=== PATIENT | female | born 1970 | race Caucasian/White ===

== ENCOUNTER 2017-03-26 09:53 | Emergency (ER) | payer BC ==
[2017-03-26 10:03] VITALS: BP 119/74
--- NOTE | 2017-03-26 11:44 | UC ---
Complaint Female HPI - HPI Summary HPI Summary: pt p/w supra pubic pressure, pain with urination, inceased frequency while voiding small amounts x 2 days. pt has also noted back pain that started 4 days ago. she is unsure whether or not mild back pain is related to presenting complaint. denies f/c/n/v/abd pain. 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 no uti in the last 8 years until now. - History Of Current Complaint Chief Complaint: UCGU Stated Complaint: BURNING,FREQ URINATING,BACK PAIN Time Seen by Provider: 03/26/17 09:59 Hx Obtained From: Patient Hx Last Menstrual Period: 03/14/17 ?: No Onset/Duration: Gradual Onset, Lasting Days, Still Present, Worse Since - today Timing: Constant Severity Initially: Moderate Severity Currently: Moderate Pain Intensity: 3 Pain Scale Used: 0-10 Numeric Character: Dull, Burning Aggravating Factor(s): Urination Associated Signs And Symptoms: Positive: Back Pain. Negative: Fever, Vaginal Bleeding/Discharge, Vaginal Discharge, Nausea, Vomiting(# Of Episodes =), Genital Swelling, Genital Blisters - Allergies/Home Medications Allergies/Adverse Reactions: Allergies Allergy/AdvReac Type Severity Reaction Status Date / Time Morphine Allergy Severe Nausea And Verified 03/26/17 09:57 Vomiting Tree Nuts Allergy Severe Anaphylatic Verified 03/26/17 09:57 Shock Sulfa Antibiotics Allergy Unknown Shakes Verified 03/26/17 09:57 Tramadol AdvReac Severe Nausea And Verified 03/26/17 09:57 Vomiting PMH/Surg Hx/FS Hx/Imm Hx Previously Healthy: Yes Other Cardiovascular History: neg:htn GI/ History: Other - 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 no uti in the last 8 years until now. 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 CORRECTIVE KIDNEY SURGERY A CHILD. LEFT ELBOW; CARPAL TUNNEL TO RIGHT WRIST 2006 - Family History Known Family History: Negative: Cardiac Disease, Hypertension, Diabetes - Social History Alcohol Use: Occasionally Substance Use Type: None Smoking Status (MU): Former Smoker Type: Cigarettes Length of Time of Smoking/Using Tobacco: 10 yrs Have You Smoked in the Last Year: Yes Review of Systems Constitutional: Negative Skin: Negative ENT: Negative Respiratory: Negative Cardiovascular: Negative Gastrointestinal: Negative Genitourinary: Dysuria, Frequency, Urgency Neurological: Negative All Other Systems Reviewed And Are Negative: Yes Physical Exam Triage Information Reviewed: Yes Appearance: Well-Appearing, No Pain Distress, Well-Nourished Vital Signs: Initial Vital Signs Temp 99.1 F 03/26/17 09:58 Pulse 74 03/26/17 09:58 Resp 16 03/26/17 09:58 BP 119/74 03/26/17 09:58 Pulse Ox 100 03/26/17 09:58 Vital Signs Reviewed: Yes Eyes: Positive: Conjunctiva Clear. Negative: Discharge ENT: Positive: Hearing grossly normal. Negative: Muffled/hoarse voice Neck: Positive: Supple Respiratory: Positive: Lungs clear, Normal breath sounds, No respiratory distress, No accessory muscle use Cardiovascular: Positive: RRR, No Murmur Abdomen Description: Positive: Soft. Negative: Nontender - supra pubic tenderness only, CVA Tenderness (R), CVA Tenderness (L), Distended, Guarding, McBurney's Point Tenderness, Peritoneal Signs Bowel Sounds: Positive: Present Musculoskeletal Exam: Normal Musculoskeletal: Positive: Other: - mild paraspainal spasm in lumbar region Neurological: Positive: Alert, Muscle Tone Normal, Other: - strength sensation reflexes intact bl Psychological: Positive: Age Appropriate Behavior Skin Exam: Normal Complaint Female Dx - Differential Dx/Diagnosis Differential Diagnosis/HQI/PQRI: , Renal Colic, Urinary Tract Infection Provider Diagnoses: uti, hematuria Discharge - Discharge Plan Condition: Stable Disposition: HOME Prescriptions: Cephalexin CAP* [Keflex CAP*] 500 mg PO BID #20 cap Patient Education Materials: Urinary Tract Infection in Women (ED), Hematuria ( ED) Referrals: Rosa Maria Paredes MD [Primary Care Provider] - (FOLLOW UP IN 2 DAYS IF NOT IMPROVING. OTHERWISE FOLLOW UP IN 2 WEEKS.) Additional Instructions: YOUR URINE DIP WAS POSITIVE FOR ALL THREE TYPES OF EVIDENCE OF UTI: BLOOD, NITRATES AND LEUKOCYTESTERASE CEPHALEXIN: The antibiotic you've been prescribed is a member of the cephalosporin class. This type of antibiotic covers a wide variety of infections, including those of the skin, lungs, and urinary tract. It's useful for staph infections. This antibiotic is slightly similar to the penicillin family. In rare cases , a person who is allergic to penicillin will also be allergic to this medication. If you have had a severe allergic reaction to penicillin, and have not taken this antibiotic since that time, notify your doctor. Antibiotics which cover many germs ("broad spectrum" antibiotics) are more likely to cause diarrhea or "yeast" infections. Women prone to vaginal yeast problems may suffer an attack after taking this antibiotic. In infants, oral thrush (white spots "stuck" on the cheek) or yeast diaper rash may result. See your doctor if these problems occur. Call at once if you develop itching, hives , shortness of breath, or lightheadedness. ANYTIME YOU TAKE AN ANTIBIOTIC, IT IS IMPORTANT TO REPLENISH THE BODY'S SUPPLY OF "GOOD BACTERIA." YOU CAN GET GOOD BACTERIA FROM HIGH QUALITY CULTURED FOODS SUCH LOCAL YOGURT, SOUR KRAUT, BOYD VIKRAM, NATURALLY FERMENTED PICKLES AND PROBIOTIC DRINKS. YOU CAN ALSO GET GOOD BACTERIA FROM A PROBIOTIC SUPPLEMENT.
== END 2017-03-26 10:34 | disposition home or self-care (01) ==
LOC: UCEAST 09:53
DX: N39.0 Urinary tract infection, site not specified (principal); B96.20 Unspecified Escherichia coli [E. coli] as the cause of diseases classified elsewhere; R31.9 Hematuria, unspecified; Z32.02 Encounter for pregnancy test, result negative; Z88.5 Allergy status to narcotic agent; Z88.2 Allergy status to sulfonamides; Z87.891 Personal history of nicotine dependence
CPT/HCPCS: 81003; 84702; 87077; 87086; 87186; 99202; G0463

== ENCOUNTER 2017-03-30 07:24 | Emergency (ER) | payer BC ==
[2017-03-30 07:52] VITALS: BP 116/72
--- NOTE | 2017-03-30 08:14 | UC ---
Complaint Female HPI - HPI Summary HPI Summary: Patient presents with complaints of night sweats, (which have been ongoing for two years), fever 101.2, and chills, recorded at home, and on day 4/10 day course of antibiotics for UTI. She was RX Keflex and did not take them today because of diarrhea. She states she is about to start her menses. She denies nausea, vomiting or dysuria, abnormal vaginal discharge or bleeding. - History Of Current Complaint Chief Complaint: UCGU Stated Complaint: FEVER BACK PAIN Time Seen by Provider: 03/30/17 07:58 Hx Obtained From: Patient Hx Last Menstrual Period: 03/15/17 ?: No Onset/Duration: Gradual Onset Timing: Constant Severity Initially: Mild Severity Currently: Mild Character: Dull Aggravating Factor(s): Urination Associated Signs And Symptoms: Positive: Fever, Back Pain Related Hx: Similar Episode/Dx as: - UTI/Kidney infection. - Allergies/Home Medications Allergies/Adverse Reactions: Allergies Allergy/AdvReac Type Severity Reaction Status Date / Time Morphine Allergy Severe Nausea And Verified 03/30/17 07:52 Vomiting Tree Nuts Allergy Severe Anaphylatic Verified 03/30/17 07:52 Shock Sulfa Antibiotics Allergy Unknown Shakes Verified 03/30/17 07:52 Tramadol AdvReac Severe Nausea And Verified 03/30/17 07:52 Vomiting PMH/Surg Hx/FS Hx/Imm Hx Previously Healthy: Yes Other History Of: Negative For: HIV, Hepatitis B, Hepatitis C, Anticoagulant Therapy - Surgical History Surgical History: Yes Surgery Procedure, Year, and Place: . CORRECTIVE KIDNEY SURGERY A CHILD. LEFT ELBOW; CARPAL TUNNEL TO RIGHT WRIST 2006 - Family History Known Family History: Negative: Cardiac Disease, Hypertension, Diabetes - Social History Occupation: Employed Full-time Lives: With Family Alcohol Use: Occasionally Substance Use Type: None Smoking Status (MU): Former Smoker Type: Cigarettes Length of Time of Smoking/Using Tobacco: 10 yrs Have You Smoked in the Last Year: Yes Review of Systems Constitutional: Fever, Chills All Other Systems Reviewed And Are Negative: Yes Physical Exam Triage Information Reviewed: Yes Appearance: Well-Appearing Vital Signs: Initial Vital Signs Temp 97.6 F 03/30/17 07:49 Pulse 83 03/30/17 07:49 Resp 18 03/30/17 07:49 BP 116/72 03/30/17 07:49 Pulse Ox 100 03/30/17 07:49 Vital Signs Reviewed: Yes Eye Exam: Normal ENT Exam: Normal Neck exam: Normal Respiratory Exam: Normal Cardiovascular Exam: Normal Abdominal Exam: Normal Skin Exam: Normal Complaint Female Dx - Course Course Of Treatment: Patient presents with continued complaints if fever, chills , (night sweats) and feel that the antibiotic is not working. Although she states that she had been on Keflex before without adverse side effects, and it was effective. A UA was repeated today and was noted to be positive for infection. The antibiotic was changed to Cipro 500 mg by mouth twice daily x 7 days. I also recommend she take probiotics, and if her symtpoms do not improve as anticapated and if for any reason her symtpom worsned she was instructed to go to the ER immedicately. - Differential Dx/Diagnosis Differential Diagnosis/HQI/PQRI: Urinary Tract Infection Provider Diagnoses: UTI Discharge - Discharge Plan Condition: Stable Disposition: HOME Prescriptions: Ciprofloxacin TAB* [Cipro 500 MG TAB*] 500 mg PO BID #14 tab Patient Education Materials: Urinary Tract Infection in Women (ED) Referrals: Patricia Trevino NP [Primary Care Provider] - Additional Instructions: I recommend that if your symptoms persist beyond 48 hours, or do not improve as anticipated you should seek immediate medical attention in the nearest emergency department, and you could develop sepsis.
== END 2017-03-30 08:47 | disposition home or self-care (01) ==
LOC: UCEAST 07:24
DX: N39.0 Urinary tract infection, site not specified (principal); R50.9 Fever, unspecified; R61 Generalized hyperhidrosis; Z88.5 Allergy status to narcotic agent; Z88.2 Allergy status to sulfonamides; Z87.891 Personal history of nicotine dependence
CPT/HCPCS: 81003; 87086; 99212; G0463

== ENCOUNTER 2017-04-02 07:22 | Emergency (ER) | payer BC ==
[2017-04-02 07:31] VITALS: BP 109/86
--- NOTE | 2017-04-02 07:44 | UC ---
Throat Pain/Nasal Reginald HPI - HPI Summary HPI Summary: CURRENTLY ON CIPRO FOR U"BLADDER INFECTION". IS HAVING PERSISTENT FEVER. 101.4 THIS MORNING. SAW A WHITE SPOT ON HER LEFT TONSIL. ONLY MILD ST. - History of Current Complaint Chief Complaint: UCRespiratory Stated Complaint: SORE THROAT Time Seen by Provider: 04/02/17 07:36 Hx Obtained From: Patient Hx Last Menstrual Period: 03/28/17 Onset/Duration: Gradual Onset, Lasting Days, Still Present Severity: Mild Pain Intensity: 0 Pain Scale Used: 0-10 Numeric Cough: None Associated Signs & Symptoms: Positive: Fever - Allergies/Home Medications Allergies/Adverse Reactions: Allergies Allergy/AdvReac Type Severity Reaction Status Date / Time Morphine Allergy Severe Nausea And Verified 04/02/17 07:31 Vomiting Tree Nuts Allergy Severe Anaphylatic Verified 04/02/17 07:31 Shock Sulfa Antibiotics Allergy Unknown Shakes Verified 04/02/17 07:31 Tramadol AdvReac Severe Nausea And Verified 04/02/17 07:31 Vomiting Home Medications: Home Medications Acetaminophen [Tylenol] 650 mg PO Q4H PRN 04/02/17 [History Confirmed 04/02/17] Ibuprofen [Advil] 600 mg PO Q6H PRN 04/02/17 [History Confirmed 04/02/17] PMH/Surg Hx/FS Hx/Imm Hx Respiratory History: Asthma Other History Of: Negative For: HIV, Hepatitis B, Hepatitis C, Anticoagulant Therapy - Surgical History Surgical History: Yes Surgery Procedure, Year, and Place: . CORRECTIVE KIDNEY SURGERY A CHILD. LEFT ELBOW; CARPAL TUNNEL TO RIGHT WRIST 2006 - Family History Known Family History: Negative: Cardiac Disease, Hypertension, Diabetes - Social History Alcohol Use: Occasionally Substance Use Type: None Smoking Status (MU): Former Smoker Type: Cigarettes Length of Time of Smoking/Using Tobacco: 10 yrs Have You Smoked in the Last Year: Yes - Immunization History Most Recent Influenza Vaccination: 2016 Review of Systems Constitutional: Fever ENT: Sore Throat Respiratory: Negative Cardiovascular: Negative Gastrointestinal: Negative Genitourinary: Dysuria All Other Systems Reviewed And Are Negative: Yes Physical Exam Triage Information Reviewed: Yes Appearance: Well-Appearing, No Pain Distress, Well-Nourished Vital Signs: Initial Vital Signs Temp 98.4 F 04/02/17 07:25 Pulse 78 04/02/17 07:25 Resp 16 04/02/17 07:25 BP 109/86 04/02/17 07:25 Pulse Ox 100 04/02/17 07:25 Vital Signs Reviewed: Yes Eyes: Positive: Conjunctiva Clear ENT: Positive: Hearing grossly normal, Pharynx normal, TMs normal, Other: - SMALL [place] WHITE DEBRIS LEFT TONSIL. Negative: Tonsillar swelling, Tonsillar exudate Neck: Positive: Supple, Nontender, No Lymphadenopathy Respiratory Exam: Normal Cardiovascular Exam: Normal Abdomen Description: Positive: Soft Musculoskeletal: Positive: No Edema Neurological: Positive: Alert Psychological: Positive: Age Appropriate Behavior Skin: Negative: rashes Diagnostics - Laboratory Diagnostic Studies Completed/Ordered: RAPID STREP NEGATIVE Throat Pain/Nasal Course/Dx - Differential Dx/Diagnosis Provider Diagnoses: ACUTE URI/PHARYNGITIS - LIKELY VIRAL Discharge - Discharge Plan Condition: Stable Disposition: HOME Patient Education Materials: Upper Respiratory Infection (ED) Referrals: Patricia Trevino [employer] [Primary Care Provider] - If Needed Additional Instructions: RAPID STREP NEGATIVE. YOU MAY HAVE PICKED UP A VIRAL ILLNESS THAT IS GIVING YOU A FEVER. THIS SHOULD RESOLVE OVER THE NEXT FEW DAYS. IF IT DOES NOT, SEEK FOLLOW -UP WITH YOUR PCP OR HERE FOR FURTHER EVALUATION.
== END 2017-04-02 08:07 | disposition home or self-care (01) ==
LOC: UCEAST 07:22
DX: J06.9 Acute upper respiratory infection, unspecified (principal); J02.9 Acute pharyngitis, unspecified; R50.9 Fever, unspecified; Z88.5 Allergy status to narcotic agent; Z88.2 Allergy status to sulfonamides; Z87.891 Personal history of nicotine dependence
CPT/HCPCS: 87651; 99211; G0463

== ENCOUNTER 2017-10-23 14:06 | Emergency (ER) | payer BC ==
[2017-10-23 14:14] VITALS: BP 110/78
--- NOTE | 2017-10-23 14:23 | UC ---
Throat Pain/Nasal Reginald HPI - HPI Summary HPI Summary: Pt presents with sinus pain/pressure/congestion and left eye watering. Symptoms started about 2 weeks ago. Has not been taking anything OTC. Denies fever, chills, cough, SOB, chest pain, abdominal pain, n/v/d/c. - History of Current Complaint Chief Complaint: UCRespiratory Stated Complaint: SINUS CONGESTION Time Seen by Provider: 10/23/17 14:23 Hx Obtained From: Patient Hx Last Menstrual Period: 10/11/17 Onset/Duration: Gradual Onset Severity: Mild Pain Intensity: 3 Pain Scale Used: 0-10 Numeric - Allergies/Home Medications Allergies/Adverse Reactions: Allergies Allergy/AdvReac Type Severity Reaction Status Date / Time Tree Nuts Allergy Severe Anaphylatic Verified 04/02/17 07:31 Shock morphine Allergy Nausea And Verified 10/23/17 14:14 Vomiting Sulfa (Sulfonamide Allergy Shakes Verified 10/23/17 14:14 Antibiotics) tramadol Allergy Nausea And Verified 10/23/17 14:14 Vomiting Home Medications: Home Medications Acetaminophen [APAP] 325 mg PO Q6H PRN 10/23/17 [History Confirmed 10/23/17] PMH/Surg Hx/FS Hx/Imm Hx Previously Healthy: Yes Respiratory History: Asthma Other History Of: Negative For: HIV, Hepatitis B, Hepatitis C, Anticoagulant Therapy - Surgical History Surgical History: Yes Surgery Procedure, Year, and Place: . CORRECTIVE KIDNEY SURGERY A CHILD. LEFT ELBOW; CARPAL TUNNEL TO RIGHT WRIST 2006 - Family History Known Family History: Negative: Cardiac Disease, Hypertension, Diabetes - Social History Occupation: Employed Full-time Lives: With Family Alcohol Use: Occasionally Substance Use Type: None Smoking Status (MU): Former Smoker Type: Cigarettes Length of Time of Smoking/Using Tobacco: 10 yrs Have You Smoked in the Last Year: Yes - Immunization History Most Recent Influenza Vaccination: 2016 Review of Systems Constitutional: Negative Skin: Negative Eyes: Drainage - Left eye ENT: Nasal Discharge, Sinus Congestion, Sinus Pain/Tenderness Respiratory: Negative Cardiovascular: Negative Gastrointestinal: Negative Neurovascular: Negative Musculoskeletal: Negative Neurological: Negative Psychological: Negative All Other Systems Reviewed And Are Negative: Yes Physical Exam - Summary Physical Exam Summary: GENERAL: NAD. WDWN HEENT: NC/AT. Conjunctiva clear without inflammation or discharge. TMs intact , no bulging, erythema, or edema. Nasal mucosa mildly swollen and erythematous with yellow/clear discharge. TTP maxillary and frontal sinus. Posterior oropharynx without exudates, erythema, or tonsillar enlargement. Uvula midline. NECK: Supple without lymphadenopathy CHEST: CTAB. No r/r/w. No accessory muscle use. Breathing comfortably and in no distress. CV: RRR. Without m/r/g. Pulses intact. SKIN: No rash or erythema noted. NEURO: Alert. CN II-XII grossly intact. PSYCH: Age appropriate behavior. Triage Information Reviewed: Yes Vital Signs: Initial Vital Signs Temp 98.6 F 10/23/17 14:10 Pulse 77 10/23/17 14:10 Resp 16 10/23/17 14:10 BP 110/78 10/23/17 14:10 Pulse Ox 99 10/23/17 14:10 Throat Pain/Nasal Course/Dx - Course Course Of Treatment: Sinusitis - Differential Dx/Diagnosis Provider Diagnoses: Sinusitis Discharge - Sign-Out/Discharge Documenting (check all that apply): Discharge - Discharge Plan Condition: Stable Disposition: HOME Prescriptions: Amoxicillin PO (*) [Amoxicillin 500 MG CAP*] 500 mg PO Q12H #20 cap Patient Education Materials: Sinusitis (ED) Referrals: Patricia Trevino NP [Primary Care Provider] - Additional Instructions: If you develop a fever, shortness of breath, chest pain, new or worsening symptoms - please call your PCP or go to the ED. - Billing Disposition and Condition Condition: STABLE Disposition: HOME
== END 2017-10-23 14:33 | disposition home or self-care (01) ==
LOC: UCEAST 14:06
DX: J32.9 Chronic sinusitis, unspecified (principal); J45.909 Unspecified asthma, uncomplicated; Z88.2 Allergy status to sulfonamides; Z88.5 Allergy status to narcotic agent; Z91.018 Allergy to other foods; Z87.891 Personal history of nicotine dependence
CPT/HCPCS: 99212; G0463

== ENCOUNTER 2018-08-01 10:39 | Emergency (ER) | payer BC ==
[2018-08-01 10:52] VITALS: BP 128/80
--- NOTE | 2018-08-01 10:53 | UC ---
Throat Pain/Nasal Reignald HPI - HPI Summary HPI Summary: 48-year-old woman comes to clinic today with a chief complaint of upper respiratory tract infection symptoms for 2 weeks. Started out as a runny nose sore throat. Over time it's moved into her chest and she has a history of asthma she's been using her albuterol inhaler more frequently. The albuterol does help with the wheezing. Also having rhinorrhea and bringing up sputum. Some left ear discomfort. - History of Current Complaint Stated Complaint: COUGH,CONGESTION Time Seen by Provider: 08/01/18 10:42 Hx Last Menstrual Period: 10/11/17 - Allergies/Home Medications Allergies/Adverse Reactions: Allergies Allergy/AdvReac Type Severity Reaction Status Date / Time Tree Nuts Allergy Severe Anaphylatic Verified 08/01/18 10:46 Shock morphine Allergy Nausea And Verified 08/01/18 10:46 Vomiting Sulfa (Sulfonamide Allergy Shakes Verified 08/01/18 10:46 Antibiotics) tramadol Allergy Nausea And Verified 08/01/18 10:46 Vomiting PMH/Surg Hx/FS Hx/Imm Hx Previously Healthy: Yes Respiratory History: Asthma Other History Of: Negative For: HIV, Hepatitis B, Hepatitis C, Anticoagulant Therapy - Surgical History Surgical History: Yes Surgery Procedure, Year, and Place: . CORRECTIVE KIDNEY SURGERY A CHILD. LEFT ELBOW; CARPAL TUNNEL TO RIGHT WRIST 2006 - Family History Known Family History: Negative: Cardiac Disease, Hypertension, Diabetes - Social History Alcohol Use: Occasionally Substance Use Type: None Smoking Status (MU): Former Smoker Type: Cigarettes Length of Time of Smoking/Using Tobacco: 10 yrs Have You Smoked in the Last Year: Yes - Immunization History Most Recent Influenza Vaccination: 2016 Review of Systems All Other Systems Reviewed And Are Negative: Yes Constitutional: Positive: Negative Skin: Positive: Negative Eyes: Positive: Negative ENT: Positive: Sore Throat, Ear Ache, Nasal Discharge, Sinus Congestion Respiratory: Positive: Shortness Of Breath, Cough, Other - WHEEZING Cardiovascular: Positive: Negative Gastrointestinal: Positive: Negative Motor: Positive: Negative Neurovascular: Positive: Negative Musculoskeletal: Positive: Negative Neurological: Positive: Negative Psychological: Positive: Negative Is Patient Immunocompromised?: No Physical Exam Triage Information Reviewed: Yes Appearance: No Pain Distress, Well-Nourished, Ill-Appearing - MILD Vital Signs Reviewed: Yes Eye Exam: Normal Eyes: Positive: Conjunctiva Clear, Discharge - CLEAR ON LEFT ENT Exam: Normal ENT: Positive: Nasal congestion, Nasal drainage, TMs normal Neck exam: Normal Neck: Positive: Supple, Nontender Respiratory: Positive: Lungs clear, Normal breath sounds, No respiratory distress Cardiovascular: Positive: RRR Musculoskeletal Exam: Normal Musculoskeletal: Positive: Strength Intact, ROM Intact Neurological Exam: Normal Neurological: Positive: Alert, Muscle Tone Normal Psychological Exam: Normal Psychological: Positive: Age Appropriate Behavior Skin Exam: Normal Throat Pain/Nasal Course/Dx - Differential Dx/Diagnosis Provider Diagnosis: Bronchitis, Asthma Discharge - Sign-Out/Discharge Documenting (check all that apply): Patient Departure All imaging exams completed and their final reports reviewed: No Studies - Discharge Plan Condition: Stable Disposition: HOME Prescriptions: Azithromyxin KYLE (NF) [Z-Kyle (Zithromax) 250 mg tabs #6] 2 tab PO .TODAY, THEN 1 DAILY #6 tab Patient Education Materials: Acute Bronchitis (ED) Referrals: Patricia Trevino NP [Primary Care Provider] - Additional Instructions: FOLLOW UP WITH YOUR DOCTOR IF NOT COMPLETELY IMPROVED. GET RECHECKED FOR ANY WORSENING OF YOUR CONDITION OR QUESTIONS OR CONCERNS. - Billing Disposition and Condition Condition: STABLE Disposition: Home
== END 2018-08-01 11:00 | disposition home or self-care (01) ==
LOC: UCEAST 10:39
DX: J45.909 Unspecified asthma, uncomplicated (principal); J40 Bronchitis, not specified as acute or chronic; Z88.5 Allergy status to narcotic agent; Z88.2 Allergy status to sulfonamides; Z88.6 Allergy status to analgesic agent; Z91.018 Allergy to other foods; Z87.891 Personal history of nicotine dependence
CPT/HCPCS: 99212; G0463

== ENCOUNTER 2019-06-04 12:05 | Emergency (ER) | payer BC ==
--- OUTSIDE RECORDS SUMMARY | 2019-06-04 12:12 | XMS REPORT | Continuity of Care Document ---
:1970 External Reference #:[id number] Author Name Patricia Trevino N.P. (transmitted by agent of provider Regina Holm) [address] [place] [address] Care Team Providers Name Role Phone Rosa Maria Paredes MD - Internal Care Team Information Consumer Recruiter Medicine Patricia Trevino NP - Family Care Team Information Consumer Recruiter [phone] Problems Active Problems Provider Date Hypothyroidism Patricia Trevino N.P. Onset: 10/03/2013 Lumbosacral spondylosis without myelopathy Alfonso Singer M.D. Onset: Lumbar radiculopathy Asad Salazar M.D. Onset: 12/07/2018 Degeneration of lumbar intervertebral disc Asad Salazar M.D. Onset: 2018 Social History Type Date Description Comments Sex Unknown ETOH Use Currently consumes 0- 4 per week alcohol Tobacco Use Start: Unknown End: Patient is a former - 1/2 ppd for 10 Unknown smoker years Recreational Drug Use Denies Drug Use Smoking Status Reviewed: 04/21/19 Patient is a former - 1/2 ppd for 10 smoker years Exercise Type/Frequency Exercises regularly Allergies, Adverse Reactions, Alerts Active Allergies Reaction Severity Comments Date Sulfa Antibiotics very shaky 10/03/2013 Morphine nauseous and emesis 10/03/2013 Medications Active Medications SIG Qnty Indications Ordering Provider Date Levothyroxine Sodium 1 by mouth 30tabs E03.9 Patricia Trevino, 04/21/2019 every day N.P. 25mcg Tablets Proair HFA 2 puffs every 4 8.500gm J45.909 Emmy Cowan MD 09/14/2018 108(90Base) hours as needed mcg/Act Aerosol Immunizations CPT Code Status Date Vaccine Lot # [id number] Given 04/08/2018 Influenza Virus Vaccine, Quadrivalent, Split, Preservative Free 15931 Given 05/08/2016 Influ Virus Vaccine, Quadrivalent, Split Virus, [place] [id number] Given 05/03/2014 Influenza Virus Vaccine, Quadrivalent, Split, Preservative Free 76555 Given 10/03/2013 Tdap - Tetanus/Diptheria/Acellular Pertussis [id number] Vital Signs Date Vital Result Comment 04/21/2019 2:00pm Height 62 inches 5'2" Weight 154.00 lb Heart Rate 74 /min BP Systolic Sitting 104 mmHg BP Diastolic Sitting 70 mmHg BMI (Body Mass Index) 28.2 kg/m2 12/07/2018 2:26pm Height 62 inches 5'2" Weight 152.00 lb BP Systolic Sitting 110 mmHg BP Diastolic Sitting 60 mmHg Pain Level 5 BMI (Body Mass Index) 27.8 kg/m2 Results Test Date Facility Test Result H/L Range Note Comp Metabolic 04/19/2019 [facility] Sodium 139 mmol/L Normal 135-145 Panel [address] [place] [address] [phone] Potassium 4.3 mmol/L Normal 3.5-5.0 Chloride 106 mmol/L Normal 101-111 Co2 Carbon Dioxide 27 mmol/L Normal 22-32 Anion Gap 6 mmol/L Normal 2-11 Glucose 91 mg/dL Normal 70-100 Blood Urea Nitrogen 20 mg/dL Normal 6-24 Creatinine 0.68 mg/dL Normal 0.51-0.95 BUN/Creatinine Ratio 29.4 High 8-20 Calcium 8.7 mg/dL Normal 8.6-10.3 Total Protein 7.0 g/dL Normal 6.4-8.9 Albumin 4.2 g/dL Normal 3.2-5.2 Globulin 2.8 g/dL Normal 2-4 Albumin/Globulin Ratio 1.5 Normal 1-3 Total Bilirubin 0.50 mg/dL Normal 0.2-1.0 Alkaline Phosphatase 41 U/L Normal 34-104 Alt 11 U/L Normal 7-52 Ast 14 U/L Normal 13-39 Egfr Non- 92.3 >60 Egfr 111.7 >60 1 Lipid Profile 04/19/2019 [facility] Triglycerides 80 mg/dL 2 (Trig/Chol/HDL) [address] [place] [address] [phone] Cholesterol 222 mg/dL 3 HDL Cholesterol 78.7 mg/dL 4 LDL Cholesterol 127 mg/dL 5 Laboratory test 04/19/2019 [facility] TSH (Thyroid 7.50 High 0.34-5.60 [address] Stim Horm) mcIU/[place] [address] [phone] Xray 03/28/2019 [facility] MG Screening <pending> [address] [address] [phone] 1 Because ethnic data is not always readily available, this report includes an eGFR for both -Americans and non- Americans. The National Kidney Disease Education Program (NKDEP) does not endorse the use of the MDRD equation for patients that are not between the ages of 18 and 70, are , have extremes of body size, muscle mass, or nutritional status, or are non- or non-. According to the National Kidney Foundation, irrespective of diagnosis, the stage of the disease is based on the level of kidney function: Stage Description GFR(mL/min/1.73 m(2)) 1 Kidney damage with normal or decreased GFR 90 2 Kidney damage with mild decrease in GFR 60-89 3 Moderate decrease in GFR 30-59 4 Severe decrease in GFR 15-29 5 Kidney failure <15 (or dialysis) 2 Desirable: <150 Borderline High: 150-199 High: 200-499 Very High: >500 3 Desirable: <200 Borderline High: 200-239 High: >239 4 Low: <40 Desirable: 40-60 High: >60 5 Desirable: <100 Near Optimal: 100-129 Borderline High: 130-159 High: 160-189 Very High: >189 6 FASTING 10 HOUR Procedures Date Code Description Status 03/25/2016 [id number] Mammogram Completed 12/28/2014 [id number] Mammogram Completed 04/17/2014 [id number] Mammogram Completed 10/12/2013 [id number] Mammogram Completed Medical Devices Description No Information Available Encounters Type Date Location Provider Dx Diagnosis Office Visit 12/07/2018 Neurosurgery Asad Salazar, M51.36 Other intervertebral 3[facility] disc degeneration, lumbar region M54.16 Radiculopathy, lumbar region Assessments Date Code Description Provider 04/21/2019 Z00.00 Encounter for general adult medical examination Patricia Trevino N.P. without abnormal findings 04/21/2019 Z12.31 Encounter for screening mammogram for malignant Patricia Trevino N.P. neoplasm of breast 04/21/2019 E03.9 Hypothyroidism, unspecified Patricia Trevino N.P. 04/21/2019 J45.30 Mild persistent asthma, uncomplicated Patricia Trevino N.P. 12/07/2018 M51.36 Other intervertebral disc degeneration, lumbar Asad Salazar M.D. region 12/07/2018 M54.16 Radiculopathy, lumbar region Asad Salazar M.D. Plan of Treatment Future Appointment(s):04/22/2020 4:00 pm - Patricia Trevino N.P. at [facility]21[facility]2019 - Patricia Trevino N.P.Z00.00 Encounter for general adult medical examination without abnormal findingsComments:For your routine health maintenance: I encourage you to continue with regular exercise and healthy nutrition. Your Tetanus immunization is up to date. You received this in 2013. It is good for 10 yearsunless you have a major injury, then it is good for 5 years. You had a pap smear in 2017. It was normal and your screening for HPV was negative. You will need a repeat pap smear in 2020.Follow up:Physical in 1 yearZ12.31 Encounter for screening mammogram for malignant neoplasm of breastNew Xrays:Mammogram Screening Vinay, Ordered: 04/21/19Comments:I have ordered your routine screening mammogram. The imaging department will give you your results at the time of your visit. I encourage you to do self exams. If you should notice any masses or thickening, please give the office a call.E03.9 Hypothyroidism, unspecifiedNew Medication:Levothyroxine Sodium 25 mcg - 1 by mouth every dayComments:For your hypothyroidism: I have prescribed Levothyroxine 25 mcg. Take 1 tablet daily, on an empty stomach, for 30 minutes.I am ordering blood work to check your thyroid levels, please get this done in 6 weeks.J45.30 Mild persistent asthma, uncomplicatedComments:For your asthma:Continue your current management. If at any point you find you need to use your rescue inhaler more than twice weekly on a regular basis, please call the office. This indicates your asthma is not adequately controlled. Functional Status Description No Information Available Mental Status Description No Information Available Referrals Description No Information Available
--- OUTSIDE RECORDS SUMMARY | 2019-06-04 12:12 | XMS REPORT | Continuity of Care Document ---
:1970 External Reference #:[id number] Author Name Patricai Trevino N.P. (transmitted by agent of provider Regina Holm) [facility] [address] [place] [address] Care Team Providers Name Role Phone Rosa Maria Paredes MD - Internal Care Team Information Soils Technician Medicine Patricia Trevino NP - Family Care Team Information Soils Technician [phone] Problems Active Problems Provider Date Hypothyroidism Patricia [...] CPT Code Status Date Vaccine Lot # [id number] Given 04/08/2018 Influenza Virus Vaccine, Quadrivalent, Split, Preservative Free 03546 Given 05/08/2016 Influ Virus Vaccine, Quadrivalent, Split Virus, [place] [id number] Given 05/03/2014 Influenza Virus Vaccine, Quadrivalent, Split, Preservative Free 74814 Given 10/03/2013 Tdap - Tetanus/Diptheria/Acellular Pertussis [id number] [...] Result H/L Range Note Comp Metabolic 04/19/2019 [facility] Sodium 139 mmol/L Normal 135-145 Panel [address] [place] [address] [phone] Potassium 4.3 mmol/L Normal 3.5-5.0 Chloride 106 [...] Egfr 111.7 >60 1 Lipid Profile 04/19/2019 [facility] Triglycerides 80 mg/dL 2 (Trig/Chol/HDL) [address] [place] [address] [phone] Cholesterol 222 mg/dL 3 HDL Cholesterol 78.7 mg/dL 4 LDL Cholesterol 127 mg/dL 5 Laboratory test 04/19/2019 [facility] TSH (Thyroid 7.50 High 0.34-5.60 [address] Stim Horm) mcIU/[place] [address] [phone] Xray 03/28/2019 [facility] MG Screening <pending> [address] [place] [address] [phone] 1 Because ethnic data is not always [...] HOUR Procedures Date Code Description Status 03/25/2016 [id number] Mammogram Completed 12/28/2014 [id number] Mammogram Completed 04/17/2014 [id number] Mammogram Completed 10/12/2013 [id number] Mammogram Completed Medical Devices Description No Information [...] 4:00 pm - Patricia Trevino N.P. at [facility] - [facility]04/21/2019 - Patricia Trevino N.P.Z00.00 Encounter for [...]
[2019-06-04 12:16] VITALS: BP 113/76
--- NOTE | 2019-06-04 12:58 | UC ---
Back Pain HPI - HPI Summary HPI Summary: 3 days ago for no apparent reason patient developed pain in her back---hurts to take a deep breath, pain is in right scapula and right side of lung below scapula - History of Current Complaint Chief Complaint: UCUpperExtremity Stated Complaint: PAIN UNDER SHOULDER BLADE Time Seen by Provider: 06/04/19 12:47 Hx Obtained From: Patient Hx Last Menstrual Period: just finished ?: No Onset/Duration: Sudden Onset, Lasting Days - 3, Still Present Timing: Constant Pain Intensity: 6 Pain Scale Used: 0-10 Numeric Back Pain: Is Discrete @ Character: Aching Aggravating Factor(s): Cough Alleviating Factor(s): Nothing - Allergies/Home Medications Allergies/Adverse Reactions: Allergies Allergy/AdvReac Type Severity Reaction Status Date / Time Tree Nuts Allergy Severe Anaphylatic Verified 06/04/19 12:16 Shock Sulfa (Sulfonamide Allergy Shakes Verified 06/04/19 12:16 Antibiotics) morphine AdvReac Nausea And Verified 06/04/19 12:16 Vomiting tramadol AdvReac Nausea And Verified 06/04/19 12:16 Vomiting Home Medications: Home Medications Levothyroxine TAB* [Synthroid TAB*] 25 mcg PO DAILY 06/04/19 [History Confirmed 06/04/19] PMH/Surg Hx/FS Hx/Imm Hx Endocrine History: Hypothyroidism Other History Of: Negative For: HIV, Hepatitis B, Hepatitis C, Anticoagulant Therapy - Surgical History Surgical History: Yes Surgery Procedure, Year, and Place: ;. CORRECTIVE KIDNEY SURGERY A CHILD;. LEFT ELBOW;. CARPAL TUNNEL TO RIGHT WRIST 2006; - Family History Known Family History: Positive: Cardiac Disease - multiple members in mother side of family dies from heart disease Negative: Hypertension, Diabetes - Social History Occupation: Employed Full-time Lives: With Family Alcohol Use: Weekly Substance Use Type: None Smoking Status (MU): Former Smoker Type: Cigarettes Length of Time of Smoking/Using Tobacco: 10 yrs Have You Smoked in the Last Year: Yes - Immunization History Most Recent Influenza Vaccination: 2016 Review of Systems All Other Systems Reviewed And Are Negative: Yes Constitutional: Positive: Negative Skin: Positive: Negative Eyes: Positive: Negative ENT: Positive: Negative Respiratory: Positive: Shortness Of Breath Cardiovascular: Positive: Negative Gastrointestinal: Positive: Negative Genitourinary: Positive: Negative Motor: Positive: Negative Neurovascular: Positive: Negative Musculoskeletal: Positive: Negative Neurological: Positive: Negative Psychological: Positive: Negative Is Patient Immunocompromised?: No Physical Exam Triage Information Reviewed: Yes Appearance: Well-Appearing, No Pain Distress, Well-Nourished Vital Signs: Initial Vital Signs Temp 98.8 F 06/04/19 12:12 Pulse 59 06/04/19 12:12 Resp 16 06/04/19 12:12 BP 113/76 06/04/19 12:12 Pulse Ox 98 06/04/19 12:12 Vital Signs Reviewed: Yes Eye Exam: Normal Eyes: Positive: Conjunctiva Clear ENT Exam: Normal ENT: Positive: Normal ENT inspection, Hearing grossly normal. Negative: Trismus , Muffled voice, Hoarse voice Dental Exam: Normal Neck exam: Normal Neck: Positive: Supple, Nontender, No Lymphadenopathy Respiratory Exam: Normal Respiratory: Positive: Chest non-tender, Lungs clear, Normal breath sounds, No respiratory distress, No accessory muscle use Cardiovascular Exam: Normal Cardiovascular: Positive: RRR, No Murmur, Pulses Normal, Brisk Capillary Refill Abdominal Exam: Normal Abdomen Description: Positive: Soft. Negative: CVA Tenderness (R), CVA Tenderness (L), Distended, Guarding, Hepatomegaly Musculoskeletal Exam: Normal Musculoskeletal: Positive: Strength Intact, ROM Intact, No Edema Neurological Exam: Normal Neurological: Positive: Alert, Muscle Tone Normal Psychological Exam: Normal Skin Exam: Normal Diagnostics - Radiology No standard instances Radiology Interpretation Completed By: Radiologist - no active cardio vascular dz. Back Pain Course/Dx - Course Course Of Treatment: plan to send patient to hospital for further assessment of pain - Differential Dx/Diagnosis Provider Diagnosis: Shortness of breath at rest Discharge ED - Sign-Out/Discharge Documenting (check all that apply): Patient Departure All imaging exams completed and their final reports reviewed: Yes - Discharge Plan Condition: Stable Disposition: HOME Patient Education Materials: Shortness of Breath (ED) Referrals: Patricia Trevino NP [Primary Care Provider] - Additional Instructions: PLEASE GO DIRECTLY TO THE EMERGENCY DEPARTMENT FOR FURTHER CARE - Billing Disposition and Condition Condition: STABLE Disposition: Home
== END 2019-06-04 13:30 | disposition home health service (06) ==
LOC: UCEAST 12:05
DX: R06.02 Shortness of breath (principal); M54.9 Dorsalgia, unspecified; E03.9 Hypothyroidism, unspecified; Z91.018 Allergy to other foods; Z88.2 Allergy status to sulfonamides; Z88.5 Allergy status to narcotic agent; Z79.899 Other long term (current) drug therapy; Z87.891 Personal history of nicotine dependence
CPT/HCPCS: 71046; 99212; G0463